=== PATIENT | female | born 2000 | race Caucasian/White ===

== ENCOUNTER 2019-09-21 18:21 | Emergency (ER) | payer OTHER ==
[2019-09-21 18:31] VITALS: BP 128/60; PULSE 68; TEMP 98.1; BMI 20.2
--- NOTE | 2019-09-21 19:35 | PDOC ---
History of Present Illness - General Chief Complaint: Vaginal Bleeding Stated Complaint: EXTENDED VAGINAL BLEEDING Time Seen by Provider: 09/21/19 19:29 Past History - Past Medical History Allergies/Adverse Reactions: Allergies Allergy/AdvReac Type Severity Reaction Status Date / Time No Known Allergies Allergy Verified 09/21/19 18:31 Anemia: Yes Cardiac Disorders: (murmur) COPD: No - Psycho Social/Smoking Cessation Hx Smoking History: Current every day smoker Information on smoking cessation initiated: No *Physical Exam - Vital Signs Last Vital Signs Temp Pulse Resp BP Pulse Ox 98.1 F 68 18 128/60 100 09/21/19 18:26 09/21/19 18:26 09/21/19 18:26 09/21/19 18:26 09/21/19 18:26
[2019-09-21 20:38] LABS: BASO % 0.4 % (0-2.0); EOS % 2.1 % (0-4.5); HEMATOCRIT 38.4 % (32.4-45.2); HEMOGLOBIN 12.6 GM/dL (10.7-15.3); LYMPH % 28.1 % (8-40); MCH 26.9 pg (25.7-33.7); MCHC 32.9 g/dl (32.0-36.0); MEAN CELL VOLUME 81.6 fl (80-96); MEAN PLT VOLUME 9.5 fl (7.5-11.1); MONO % 9.4 % (3.8-10.2); PLATELET COUNT 238 K/MM3 (134-434); RDW 17.7 % (11.6-15.6); WHITE BLOOD COUNT 5.8 K/mm3 (4.0-10.0)
[2019-09-21 20:41] LABS: PH,URINE 7.5 (5.0-8.0); URINE APPEARANCE CLOUDY; URINE BILIRUBIN NEGATIVE (NEGATIVE); URINE COLOR YELLOW; URINE GLUCOSE (UA) NEGATIVE (NEGATIVE); URINE KETONE NEGATIVE (NEGATIVE); URINE LEUK ESTERASE NEGATIVE (NEGATIVE); URINE NITRITE NEGATIVE (NEGATIVE); URINE PROTEIN NEGATIVE (NEGATIVE); URINE UROBILINOGEN 0.2 mg/dL (0.2-1.0)
--- NOTE | 2019-09-21 20:54 | PDOC ---
Documentation entered by Carrie Ray SCRIBE, acting as scribe for Shaina Kolb MD. Shaina Kolb MD: This documentation has been prepared by the Flor santillan Nirvannie, SCRIBE, under my direction and personally reviewed by me in its entirety. I confirm that the documentation accurately reflects all work, treatment, procedures, and medical decision making performed by me. History of Present Illness - General Chief Complaint: Vaginal Bleeding Stated Complaint: EXTENDED VAGINAL BLEEDING Time Seen by Provider: 09/21/19 19:29 History Source: Patient Exam Limitations: No Limitations - History of Present Illness Initial Comments: 09/21/19 20:39 The patient is a 19 year old female, with a significant past medical history of anemia (no hx of blood transfusions), unknown cardiac disorder (followed by cardiology), and irregular menses (2wks/month), who presents to the emergency department with persistent vaginal bleeding. As per patient, her vaginal bleeding has been persistent for over 2 weeks. She describes the blood as minimal, but prolonged. She endorses going to her PCP who advised her he was not able to perform an exam secondary to bleeding. She denies recent fevers, chills, headache or dizziness. She denies recent nausea, vomiting, diarrhea or constipation. She denies recent dysuria, frequency, urgency or hematuria. She denies recent chest pain or shortness of breath. Allergies: NKDA Past History - Past Medical History Allergies/Adverse Reactions: Allergies Allergy/AdvReac Type Severity Reaction Status Date / Time No Known Allergies Allergy Verified 09/21/19 18:31 Anemia: Yes Cardiac Disorders: (murmur) COPD: No - Psycho Social/Smoking Cessation Hx Smoking History: Current every day smoker Information on smoking cessation initiated: No Review of Systems - Review of Systems Able to Perform ROS?: Yes Comments:: 09/21/19 20:39 CONSTITUTIONAL: Absent: fever, no chills, no fatigue EYES: Absent: visual changes ENT: Absent: ear pain, no sore throat CARDIOVASCULAR: Absent: chest pain, no palpitations RESPIRATORY: Absent: cough, no SOB GI: Absent: abdominal pain, no nausea, no vomiting, no constipation, no diarrhea GENITOURINARY: Present: Vaginal bleeding. Absent: dysuria, no frequency, no hematuria MUSKULOSKELETAL: Absent: back pain, no arthralgia, no myalgia SKIN: Absent: rash NEURO: Absent: headache All Other Systems: Reviewed and Negative *Physical Exam - Vital Signs Last Vital Signs Temp Pulse Resp BP Pulse Ox 98.1 F 68 18 128/60 100 09/21/19 18:26 09/21/19 18:26 09/21/19 18:26 09/21/19 18:26 09/21/19 18:26 - Physical Exam 09/21/19 20:40 GENERAL: Well-appearing, well-nourished. No apparent distress. HEENT: Normocephalic, atraumatic. PERRL, EOM intact. CARDIOVASCULAR: Normal S1, S2. Regular rate and rhythm. PULMONARY: Clear to auscultation bilaterally. ABDOMEN: Soft, non-distended, non-tender. PELVIC: External genitalia normal without lesions. +Minimal blood in the vaginal vault. Cervix is long and closed. No cervical motion tenderness. Uterus is nontender and normal in size. Adnexa are nontender and without masses. EXTREMITIES: Normal ROM in all four extremities. No gross deformities. SKIN: Warm, dry. No rash NEUROLOGICAL: No focal neurological deficits. ED Treatment Course - LABORATORY CBC & Chemistry Diagram: 09/21/19 19:54 - ADDITIONAL ORDERS Additional order review: Laboratory Results 09/21/19 09/21/19 19:54 19:54 Urine Color Yellow Urine Appearance Cloudy Urine pH 7.5 Ur Specific [place] 1.028 Urine Protein Negative Urine Glucose (UA) Negative Urine Ketones Negative Urine Blood Negative Urine Nitrite Negative Urine Bilirubin Negative Urine Urobilinogen 0.2 Ur Leukocyte Esterase Negative Urine HCG, Qual Negative 09/21/19 19:54 RBC 4.70 MCV 81.6 MCHC 32.9 RDW 17.7 H MPV 9.5 Neutrophils % 60.0 Lymphocytes % 28.1 Monocytes % 9.4 Eosinophils % 2.1 Basophils % 0.4 Medical Decision Making - Medical Decision Making 09/21/19 20:53 27-year-old female presents because of 2 weeks of vaginal bleeding that she qualifies as mild She has not had this problem before so came to the emergency department She has a negative test Her CBC is normal and she has no anemia Impression dysfunctional uterine bleeding Plan follow-up with her encoding clerk Discharge - Discharge Information Problems reviewed: Yes Clinical Impression/Diagnosis: Vaginal bleeding problems Condition: Stable Disposition: HOME - Admission No - Follow up/Referral Referrals: Atul Otero [Primary Care Provider] - - Patient Discharge Instructions Patient Printed Discharge Instructions: DI for Vaginal Bleeding Additional Instructions: please followup with your encoding clerk Print Language: DANISH - Post Discharge Activity
== END 2019-09-21 21:00 | disposition home or self-care (01) ==
LOC: JER 18:21
DX: N93.9 Abnormal uterine and vaginal bleeding, unspecified (principal); R01.1 Cardiac murmur, unspecified; F17.210 Nicotine dependence, cigarettes, uncomplicated; D64.9 Anemia, unspecified
CPT/HCPCS: 36415; 81003; 84703; 85025; 86850; 86900; 86901; 99281-25

== ENCOUNTER 2021-06-19 14:17 | Inpatient (IN) | payer OTHER ==
[2021-06-19] MEDS ORDERED: AMPICILLIN SODIUM 2 GM VIAL ONE (15:05)
[2021-06-19] MEDS ORDERED: AMPICILLIN - 2 GM in SODIUM CHLORIDE 100 ML IVPB ONE ×2 (15:15)
[2021-06-19 16:16] LABS: BASO % 0.3 % (0-2.0); EOS % 0.1 % (0-4.5); HEMOGLOBIN 14.3 GM/dL (10.7-15.3); LYMPH % 9.4 % (8-40); MCH 32.2 pg (25.7-33.7); MCHC 34.9 g/dl (32.0-36.0); MEAN CELL VOLUME 92.3 fl (80-96); MEAN PLT VOLUME 9.2 fl (7.5-11.1); MONO % 5.5 % (3.8-10.2); NEUT % 84.7 % (42.8-82.8); PLATELET COUNT 188 10^3/uL (134-434); RBC 4.45 M/mm3 (3.60-5.2); RDW 13.6 % (11.6-15.6); WHITE BLOOD COUNT 11.2 K/mm3 (4.0-10.0)
[2021-06-19 16:25] LABS: INR 0.9 (0.83-1.09); PROTHROMBIN TIME (PATIENT) 10.9 SEC (9.7-13.0)
[2021-06-19 16:35] LABS: ALBUMIN 3.4 g/dl (3.4-5.0); BLOOD UREA NITROGEN 5.1 mg/dL (7-18); CALCIUM 8.8 mg/dL (8.5-10.1)
[2021-06-19 16:39] LABS: CREATININE 0.5 mg/dL (0.55-1.3)
[2021-06-19 16:40] LABS: BILIRUBIN,TOTAL 0.8 mg/dL (0.2-1); TOT PROT 7.4 g/dl (6.4-8.2)
[2021-06-19] MEDS ORDERED: FENTANYL/BUPIVACAINE/NS/PF - PCEA - 50 ML DISP.SYRIN EP ONE ×2 (16:47→22:10)
[2021-06-19 17:02] LABS: SYPHILIS W/ RPR CONF NON-REACTIVE (NONREACTIVE)
[2021-06-19 17:31] LABS: HIV INTERPRETATION NEGATIVE (NEGATIVE)
[2021-06-19 18:14] VITALS: BMI 24.2
[2021-06-19 18:15] LABS: COCAINE, UR NEGATIVE (NEGATIVE); METHADONE, UR NEGATIVE (NEGATIVE); OPIATES, URI NEGATIVE (NEGATIVE); URINE BARBITURATES NEGATIVE (NEGATIVE); URINE BENZODIAZEPINES NEGATIVE (NEGATIVE)
[2021-06-19 18:16] LABS: PHENCYCLIDINE,URINE NEGATIVE (NEGATIVE)
[2021-06-19] MEDS ORDERED: FENTANYL/BUPIVACAINE/NS/PF - PCEA - 50 ML DISP.SYRIN EP SCH (18:45)
[2021-06-19 18:51] LABS: URINE AMPHETAMINES NEGATIVE (NEGATIVE)
[2021-06-19] MEDS ORDERED: AMPICILLIN SODIUM 1 GM VIAL ONE ×2 (19:02→23:06)
[2021-06-19] MEDS: AMPICILLIN - 1 GM in SODIUM CHLORIDE 100 ML IVPB SCH ×2 (19:15→23:15)
[2021-06-19] MEDS ORDERED: AMPICILLIN - 1 GM in SODIUM CHLORIDE 100 ML IVPB SCH (19:15)
[2021-06-19] MEDS ORDERED: ELECTROLYTE-148 SOLN 1,000 ML IV SCH (20:00)
[2021-06-19] MEDS ORDERED: OXYTOCIN 30 UNITS in 0.9% NS 30 UNIT/500 ML INFUS.BAG IVPB SCH (20:15)
[2021-06-19] MEDS ORDERED: OXYTOCIN 30 UNITS in 0.9% NS 30 UNIT/500 ML INFUS.BAG IVPB ONE (21:44)
[2021-06-19] MEDS ORDERED: PCA PUMP NR ONE (22:09)
[2021-06-20] MEDS ORDERED: LIDOCAINE HCL 1% PRESERVATIVE FREE - 30ML VIAL ONE (00:51)
[2021-06-20] MEDS ORDERED: PCA PUMP NR ONE (00:52)
[2021-06-20] MEDS ORDERED: OXYTOCIN 20 UNITS in 0.9% NS 20 UNIT/1,000 ML INFUS.BAG IV ONE ×2 (00:52→05:12)
[2021-06-20] MEDS ORDERED: BISACODYL 10 MG SUPP.RECT RC PRN (01:44)
[2021-06-20] MEDS ORDERED: oxyCODONE HCL 5 MG TABLET PO PRN (01:44)
[2021-06-20] MEDS ORDERED: METHYLERGONOVINE MALEATE 0.2 MG/1 ML AMP IM PRN (01:44)
[2021-06-20] MEDS ORDERED: WITCH HAZEL 50% (TUCKS) 40 PAD/JAR PAD TP PRN (01:44)
[2021-06-20] MEDS ORDERED: ACETAMINOPHEN 325 MG TABLET (FP) PO PRN (01:44)
[2021-06-20] MEDS ORDERED: BENZOCAINE 20% 57 GM BOTTLE TP PRN (01:44)
[2021-06-20] MEDS ORDERED: BENZOCAINE 28 GM HEMORRHOIDAL OINTMENT TP PRN (01:44)
[2021-06-20] MEDS ORDERED: OXYTOCIN 20 UNITS in 0.9% NS 20 UNIT/1,000 ML INFUS.BAG IV SCH (01:45)
[2021-06-20 03:42] LABS: CORD BASE EXCESS -3.8 mmol/L (0-2); CORD HCO3 21.1 mmHg (20-29); CORD pH 7.362 (7.14-7.44)
[2021-06-20 03:45] LABS: CORD BASE EXCESS -1.6 mmol/L (0-2); CORD HCO3 24.1 mmHg (20-29); CORD PCO2 44.1 mmHg (30-78); CORD pH 7.356 (7.14-7.44)
[2021-06-20] MEDS: AMPICILLIN - 1 GM in SODIUM CHLORIDE 100 ML IVPB SCH (03:52)
[2021-06-20] MEDS: FERROUS SO4 325 MG TABLET (FP) PO SCH ×3 (08:11→17:08)
[2021-06-20] MEDS: IBUPROFEN 600 MG TABLET (FP) PO PRN ×2 (08:11→19:45)
[2021-06-20] MEDS: PRENATAL VITAMINS W/ FOLIC ACID TABLET (FP) PO SCH (09:32)
[2021-06-21] MEDS: FERROUS SO4 325 MG TABLET (FP) PO SCH ×3 (09:07→17:41)
[2021-06-21] MEDS: PRENATAL VITAMINS W/ FOLIC ACID TABLET (FP) PO SCH (09:08)
[2021-06-21 09:09] LABS: BASO % 0.2 % (0-2.0); EOS % 1.3 % (0-4.5); HEMATOCRIT 34.3 % (32.4-45.2); LYMPH % 17.4 % (8-40); MCH 32.8 pg (25.7-33.7); MCHC 34.9 g/dl (32.0-36.0); MEAN CELL VOLUME 93.9 fl (80-96); MEAN PLT VOLUME 8.8 fl (7.5-11.1); MONO % 8.3 % (3.8-10.2); NEUT % 72.8 % (42.8-82.8); PLATELET COUNT 154 10^3/uL (134-434); RBC 3.66 M/mm3 (3.60-5.2); RDW 13.6 % (11.6-15.6); WHITE BLOOD COUNT 10.8 K/mm3 (4.0-10.0)
[2021-06-21] MEDS: IBUPROFEN 600 MG TABLET (FP) PO PRN (11:11)
[2021-06-21] MEDS ORDERED: SENNOSIDES/DOCUSATE COMBO (SENNA PLUS) TABLET (UD) PO PRN (22:00)
[2021-06-22] MEDS: IBUPROFEN 600 MG TABLET (FP) PO PRN (03:58)
[2021-06-22] MEDS: FERROUS SO4 325 MG TABLET (FP) PO SCH (09:26)
[2021-06-22] MEDS: PRENATAL VITAMINS W/ FOLIC ACID TABLET (FP) PO SCH (09:26)
[2021-06-22 09:56] VITALS: BP 101/65; PULSE 71; TEMP 97.8
== END 2021-06-22 12:55 | disposition home or self-care (01) | DRG 560 ==
LOC: JDEL 14:17 → JLDR 14:45 → J3W 06-20 05:48
PROVIDERS: ADMIT Obstetrics & Gynecology; ATTEND Obstetrics & Gynecology
PROC: 10E0XZZ Delivery of Products of Conception, External Approach (ICD-10-PCS; principal; 2021-06-20)
PROC: 0W8NXZZ Division of Female Perineum, External Approach (ICD-10-PCS; 2021-06-20)
DX: O36.5930 Maternal care for other known or suspected poor fetal growth, third trimester, not applicable or unspecified (principal); Z3A.40 40 weeks gestation of pregnancy; Z37.0 Single live birth
CPT/HCPCS: 36415; 36600; 59025; 59409; 80053; 80307; 82803; 85025; 85610; 85730; 86762; 86780; 86850; 86900; 86901; 87340; 87389; C9803; U0003; U0005